=== PATIENT | female | born 1955 | race Caucasian/White ===

== ENCOUNTER 2019-11-21 11:14 | Emergency (ER) | payer OTHER ==
[~2019-11-21] VITALS: Ht 157.5 cm; Wt 83.9 kg
[~2019-11-21 11:14] MED LIST: EDARBYCLOR 40-1 EACH PO; NABUMETONE500 MG PO; NORVASC5 MG; PERCOCET 5-3251 EACH PO; PERCOCET 5/3251 TAB PO
[2019-11-21] MEDS ORDERED: INTESTINEX680 M1 PO (14:21)
[2019-11-21] MEDS ORDERED: ZITHROMAX500 MG PO (14:21)
== END 2019-11-21 14:24 | disposition home or self-care (01) ==
LOC: ER 11:14
DX: R10.11 Right upper quadrant pain (principal); B96.0 Mycoplasma pneumoniae [M. pneumoniae] as the cause of diseases classified elsewhere